=== PATIENT | male | born 1990 ===

== ENCOUNTER 2023-08-01 11:15 | Inpatient (IN) | payer OTHER ==
[~2023-08-01] VITALS: Ht 175.3 cm; Wt 72.6 kg
[2023-08-03] MEDS ORDERED: PERCOCET 5-3251 EACH PO (07:22)
[2023-08-03] MEDS ORDERED: COLACE100 MG PO (07:23)
[2023-08-03] MEDS ORDERED: AMOX-CLAV 875-1 EACH PO (07:23)
[2023-08-03] MEDS ORDERED: MEDROLPACK PO (07:23)
[2023-08-03] MEDS ORDERED: NEURONTIN800 MG PO (07:24)
[2023-08-03] MEDS ORDERED: GABAPENTIN100 M2 PO (07:24)
[2023-08-04 06:16] LABS: HEMATOCRIT 37.4 % (39.0-48.0); HEMOGLOBIN 12.8 g/dL (13-16.00); MEAN CELL VOLUME 77.9 fL (80.0-100.00); MEAN CORPUSCULAR HEMOGLOBIN 26.7 pg (27.00-32.0); MEAN CORPUSCULAR HGB CONC 34.2 g/dl (32.0-36.0); PLATELET COUNT 284 K/uL (150-450); RED BLOOD COUNT 4.79 M/uL (4.00-6.00); RED CELL DISTRIBUTION WIDTH 13.5 % (11.5-14.5)
[2023-08-04 06:48] LABS: CALCIUM 8.4 mg/dL (8.5-10.1); CREATININE SERUM 0.79 mg/dL (0.70-1.30); GFR 114.4; POTASSIUM 4.33 mEq/L (3.5-5.1)
== END 2023-08-04 11:03 | disposition home or self-care (01) | DRG 455 ==
LOC: ADM 11:15 → O/R 08-03 05:25 → SURG 08-03 07:00 → SURH 08-03 10:51 → SURG 08-03 11:15 → CIR.AMB 08-03 11:15 → EDSTATUS 08-03 11:15 → SURG 08-03 15:37
PROVIDERS: ADMIT Orthopaedic Surgery Orthopaedic Surgery of the Spine; ATTEND Orthopaedic Surgery Orthopaedic Surgery of the Spine
PROC: 0SG3071 Fusion of Lumbosacral Joint with Autologous Tissue Substitute, Posterior Approach, Posterior Column, Open Approach (ICD-10-PCS; 2023-08-03)
PROC: 0ST40ZZ Resection of Lumbosacral Disc, Open Approach (ICD-10-PCS; 2023-08-03)
PROC: 0QB30ZZ Excision of Left Pelvic Bone, Open Approach (ICD-10-PCS; 2023-08-03)
PROC: 07DR0ZZ Extraction of Iliac Bone Marrow, Open Approach (ICD-10-PCS; 2023-08-03)
PROC: 4A1104G Monitoring of Peripheral Nervous Electrical Activity, Intraoperative, Open Approach (ICD-10-PCS; 2023-08-03)
PROC: 4A12X4Z Monitoring of Cardiac Electrical Activity, External Approach (ICD-10-PCS; 2023-08-03)
PROC: XRGD0R7 Fusion of Lumbosacral Joint using Custom-Made Anatomically Designed Interbody Fusion Device, Open Approach, New Technology Group 7 (ICD-10-PCS; principal; 2023-08-03 07:00)
DX: M48.07 Spinal stenosis, lumbosacral region (principal); M43.17 Spondylolisthesis, lumbosacral region; M54.17 Radiculopathy, lumbosacral region